=== PATIENT | male | born 1960 | race Caucasian/White ===

== ENCOUNTER 2020-11-25 23:03 | Inpatient (IN) ==
[2020-11-25 23:16] LABS: ABG Base Excess -17 mEq/L (-2 to 3); ABG HCO3 18 mEq/L (21-27); ABG Oxygen Saturation 96 % (95-98); ABG PCO2 84 mmHg (35-45); ABG PH 6.93 pH Units (7.32-7.45); ABG PO2 131 mmHg (85-104); ABG TCO2 20 mEq/L (20-26); Blood Gas VT 500 cc
[2020-11-25 23:25] LABS: Basophils # 0.1 K/mcL (0.0-0.2); Basophils % 0.7 %; Eosinophils # 0.2 K/mcL (0.0-0.6); Eosinophils % 1.5 %; Hematocrit 51.5 % (37.5-50.1); Hemoglobin 16.3 g/dL (12.9-16.9); Immature Granulocytes % 3.3 % (0-4); Lymphocytes # 5.9 K/mcL (0.6-4.6); Mean Corpuscular HGB Conc 31.7 g/dL (31.6-35.5); Mean Corpuscular Hemoglobin 30.4 pg (28.0-33.3); Mean Corpuscular Volume 96.1 fL (83.0-100.0); Mean Platelet Volume 10.8 fL (9.4-12.4); Monocytes # 0.4 K/mcL (0.0-1.3); Monocytes % 4.1 %; Neutrophils # 3.3 K/mcL (1.6-8.9); Platelet Count 122 K/mcL (140-400); Red Blood Count 5.36 M/mcL (4.19-5.50); Red Cell Distribution Width 14.2 % (11.5-14.5); Segmented Neutrophils % 32.4 %; White Blood Count 10.1 K/mcL (4.3-11.1)
[2020-11-25] MEDS: 0.9 % Sodium Chloride 500 ML IVC ONE (23:25)
[2020-11-25] MEDS ORDERED: *HR* Heparin 5,000 UNIT/ML VIAL IVP ONE (23:26)
[2020-11-25] MEDS ORDERED: *HR* Heparin 5,000 UNIT/ML VIAL IVP PRN ×2 (23:26)
[2020-11-25 23:34] LABS: VBG HCO3 19 mEq/L (21-27); VBG PCO2 87 mmHg (41-51); VBG PH 6.96 pH Units (7.32-7.42); VBG PO2 72 mmHg (25-50)
[2020-11-25 23:37] LABS: INR 1.1; Prothrombin Time 12.5 Seconds (9.4-12.1)
[2020-11-25 23:39] LABS: Activated Partial Thrombo Time 28.2 Seconds (26.0-36.0)
[2020-11-25 23:51] LABS: Calcium 7.9 mg/dL (8.6-10.3); Potassium 2.6 mEq/L (3.5-5.1)
[2020-11-25] MEDS ORDERED: *HR* FentaNYL (PF) 100 MCG/2 ML VIAL IVP ONE (23:53)
[2020-11-25] MEDS ORDERED: *HR* FentaNYL (PF) 100 MCG/2 ML VIAL IVP STA (23:53)
[2020-11-25] MEDS ORDERED: 0.9 % Sodium Chloride 500 ML IV ONE (23:54)
[2020-11-26] MEDS ORDERED: Nitroglycerin 1,000 MCG/5 ML VIAL IV ONE (00:03)
[2020-11-26] MEDS ORDERED: 0.9 % Sodium Chloride 1,000 ML ONE ×2 (00:03→04:38)
[2020-11-26] MEDS ORDERED: ISOVUE-370 200 ML INFUS..BTL ONE ×2 (00:03→01:06)
[2020-11-26] MEDS ORDERED: Heparin 1,000 UNITS/500 mL 500 ML ONE ×2 (00:03→01:12)
[2020-11-26] MEDS ORDERED: *HR* Heparin 10,000 UNIT/10 ML VIAL ONE (00:03)
[2020-11-26] MEDS ORDERED: *HR* Midazolam HCl 2 MG/2 ML VIAL IVP ONE (00:07)
[2020-11-26 00:08] LABS: Troponin I 0.05 ng/mL (< 0.04)
[2020-11-26] MEDS ORDERED: *HR* Midazolam HCl 2 MG/2 ML VIAL ONE (00:29)
[2020-11-26] MEDS ORDERED: *HR* FentaNYL (PF) 100 MCG/2 ML VIAL ONE (00:30)
[2020-11-26] MEDS ORDERED: Tirofiban 12.5 MG/250ML 12.5 MG/250 ML BAG ONE (01:00)
[2020-11-26] MEDS ORDERED: Perflutren Lipid Microsphere 1.3 ML in 0.9 % Sodium Chloride 8.7 ML IVP PRN (01:37)
[2020-11-26] MEDS ORDERED: Tirofiban 12.5 MG/250ML 12.5 MG/250 ML BAG IVC SCH (01:45)
[2020-11-26] MEDS ORDERED: Artificial Tears SOLN 15 ML BOTTLE BOTH EYES PRN (02:12)
[2020-11-26] MEDS ORDERED: Amiodarone Premix 360 MG/200 ML BAG IVC ONE ×2 (02:33→09:11)
[2020-11-26] MEDS: Heparin 25,000UNIT/250ML 1/2NS 25,000 UNIT/250 ML IV.SOLN IVC SCH (02:46)
[2020-11-26] MEDS: Chlorhexidine Rinse 15 ML MOUTHWASH MM SCH ×3 (02:49→19:42)
[2020-11-26 02:54] LABS: VBG Ionized Calcium 1.05 mmol/L (1.15-1.35)
[2020-11-26 02:56] LABS: Basophils % 0.2 %; Eosinophils % 0.1 %; Hematocrit 50.8 % (37.5-50.1); Hemoglobin 16.7 g/dL (12.9-16.9); Immature Granulocytes % 0.7 % (0-4); Lymphocytes % 4.9 %; Mean Corpuscular HGB Conc 32.9 g/dL (31.6-35.5); Mean Corpuscular Hemoglobin 30.3 pg (28.0-33.3); Mean Platelet Volume 11.1 fL (9.4-12.4); Monocytes # 1.5 K/mcL (0.0-1.3); Monocytes % 7.6 %; Neutrophils # 16.9 K/mcL (1.6-8.9); Platelet Count 164 K/mcL (140-400); Red Blood Count 5.52 M/mcL (4.19-5.50); Red Cell Distribution Width 14.4 % (11.5-14.5); Segmented Neutrophils % 86.5 %; White Blood Count 19.5 K/mcL (4.3-11.1)
[2020-11-26] MEDS: FentaNYL (PF) 1,000 MCG/100 ML IV.SOLN IVC SCH ×2 (03:02→17:23)
[2020-11-26 03:13] LABS: Magnesium 2.1 mg/dL (1.6-2.6)
[2020-11-26] MEDS ORDERED: Amiodarone Premix 150 MG/100 ML BAG IVPB ONE (03:50)
[2020-11-26] MEDS: Artificial Tears SOLN 15 ML BOTTLE BOTH EYES SCH ×5 (03:53→19:41)
[2020-11-26 03:54] LABS: ABG Base Excess -7 mEq/L (-2 to 3); ABG HCO3 21 mEq/L (21-27); ABG Oxygen Saturation 100 % (95-98); ABG PCO2 49 mmHg (35-45); ABG PH 7.23 pH Units (7.32-7.45); ABG PO2 484 mmHg (85-104); ABG TCO2 22 mEq/L (20-26); Blood Gas VT 450 cc
[2020-11-26] MEDS: *HR* Ticagrelor 90 MG TABLET PO SCH ×2 (04:18→19:42)
[2020-11-26] MEDS: Calcium Gluconate 1gm/50mL 1 GM/50 ML BAG IVPB SCH ×2 (04:18→04:53)
[2020-11-26 04:28] LABS: Calcium 7.6 mg/dL (8.6-10.3); Potassium 3.7 mEq/L (3.5-5.1)
[2020-11-26] MEDS ORDERED: 0.9 % Sodium Chloride 500 ML ONE ×2 (04:38→05:02)
[2020-11-26 04:51] LABS: Mixed Venous Blood pCO2 59 mmHg (44-46); Mixed Venous Blood pH 7.23 pH Units (7.34-7.36); Mixed Venous Blood pO2 25 mmHg (35-45)
[2020-11-26] MEDS ORDERED: 0.9 % Sodium Chloride 1,000 ML IVC ONE (05:00)
[2020-11-26 05:03] LABS: ABG Base Excess -6 mEq/L (-2 to 3); ABG HCO3 20 mEq/L (21-27); ABG Oxygen Saturation 99 % (95-98); ABG PCO2 40 mmHg (35-45); ABG PH 7.32 pH Units (7.32-7.45); ABG PO2 141 mmHg (85-104); ABG TCO2 22 mEq/L (20-26); Blood Gas VT 450 cc
[2020-11-26] MEDS: 0.9 % Sodium Chloride 500 ML IVC ONE (05:06)
[2020-11-26] MEDS ORDERED: *HR* Midazolam HCl 5 MG/5 ML VIAL IVP ONE ×2 (05:46→05:52)
[2020-11-26] MEDS ORDERED: Dextrose Gel 15 GM/37.5 ML TUBE PO PRN ×2 (06:01)
[2020-11-26] MEDS ORDERED: *HR* Dextrose 50 % in Water (Vial) 50 ML VIAL IVP PRN (06:01)
[2020-11-26] MEDS ORDERED: D5% in Water 1,000 ML IVC PRN (06:01)
[2020-11-26] MEDS ORDERED: Insulin LISPRO 300 UNITS/3 ML VIAL SUBQ SCH (06:15)
[2020-11-26] MEDS: Midazolam HCl 50 MG/100 ML IV.SOLN IVC SCH (06:26)
[2020-11-26] MEDS: Insulin LISPRO 300 UNITS/3 ML VIAL SUBQ SCH ×4 (08:58→19:40)
[2020-11-26] MEDS: Pantoprazole 40 MG VIAL IVP SCH (08:59)
[2020-11-26] MEDS: Aspirin 81 MG TAB.CHEW PO SCH (09:00)
[2020-11-26] MEDS ORDERED: Amiodarone Premix 360 MG/200 ML BAG IVC SCH (09:45)
[2020-11-26 11:08] LABS: Estimated Average Glucose 100 mg/dl; Hemoglobin A1C 5.1 %
[2020-11-26] MEDS ORDERED: Furosemide 40 MG/4 ML VIAL IVP ONE ×2 (11:48→20:00)
[2020-11-26 12:30] LABS: ABG Ionized Calcium 1.11 mmol/L (1.15-1.35)
[2020-11-26 13:02] LABS: Alanine Aminotransferase 158 Units/L (7-52); Albumin 3.8 g/dL (3.5-5.7); Albumin/Globulin Ratio 1.8 (1.1-2.2); Alkaline Phosphatase 62 Units/L (34-104); Aspartate Amino Transferase 486 Units/L (13-39); BUN/Creatinine Ratio 11 (6-26); Bilirubin,Direct 0.1 mg/dL (0.0-0.2); Bilirubin,Indirect 0.3 mg/dL (0.0-1.0); Bilirubin,Total 0.4 mg/dL (0.3-1.0); Blood Urea Nitrogen 19 mg/dL (6-20); Calcium 8.1 mg/dL (8.6-10.3); Carbon Dioxide 21 mEq/L (23-29); Chloride 110 mEq/L (98-107); Chol/HDL Ratio 4.8 (0-4.9); Cholesterol 116 mg/dL (< 200); Globulin 2.1 g/dL (2.4-3.5); Glucose 203 mg/dL (70-105); HDL Cholesterol 24 mg/dL (40-59); LDL Cholesterol,Calculated 55 mg/dL (< 100); Osmolality,Calculated 300 (280-300); Sodium 141 mEq/L (136-145); Total Protein 5.9 g/dL (6.4-8.9); Triglycerides 184 mg/dL (< 150); Troponin I > 73.00 ng/mL (< 0.04); eGFR For African Americans 52 (> 60); eGFR For Non-African Americans 43 (> 60)
[2020-11-26] MEDS: Norepinephrine 4 MG/254 ML IV.SOLN IVC SCH (19:26)
[2020-11-27] MEDS: Artificial Tears SOLN 15 ML BOTTLE BOTH EYES SCH ×5 (00:29→17:17)
[2020-11-27] MEDS: Heparin 25,000UNIT/250ML 1/2NS 25,000 UNIT/250 ML IV.SOLN IVC SCH (00:29)
[2020-11-27] MEDS: Insulin LISPRO 300 UNITS/3 ML VIAL SUBQ SCH ×5 (00:30→17:17)
[2020-11-27] MEDS: FentaNYL (PF) 1,000 MCG/100 ML IV.SOLN IVC SCH ×2 (02:20→11:49)
[2020-11-27 04:08] LABS: ABG Base Excess 1 mEq/L (-2 to 3); ABG HCO3 29 mEq/L (21-27); ABG Oxygen Saturation 99 % (95-98); ABG PCO2 57 mmHg (35-45); ABG PH 7.31 pH Units (7.32-7.45); ABG PO2 134 mmHg (85-104); ABG TCO2 30 mEq/L (20-26); Blood Gas VT 450 cc
[2020-11-27] MEDS: Midazolam HCl 50 MG/100 ML IV.SOLN IVC SCH (04:11)
[2020-11-27] MEDS: Norepinephrine 4 MG/254 ML IV.SOLN IVC SCH (04:11)
[2020-11-27] MEDS: Aspirin 81 MG TAB.CHEW PO SCH (08:17)
[2020-11-27] MEDS: Chlorhexidine Rinse 15 ML MOUTHWASH MM SCH (08:17)
[2020-11-27] MEDS: *HR* Ticagrelor 90 MG TABLET PO SCH (08:17)
[2020-11-27] MEDS: Pantoprazole 40 MG VIAL IVP SCH (08:17)
[2020-11-27] MEDS ORDERED: Metoprolol XL (24 HR) Succ 25 MG TAB.ER.24H PO SCH (12:00)
[2020-11-27] MEDS ORDERED: *HR* Metoprolol 5 MG/5 ML VIAL IVP ONE ×2 (12:16→12:18)
[2020-11-27 12:21] LABS: INR 1.2; Prothrombin Time 13.9 Seconds (9.4-12.1)
[2020-11-27 12:24] LABS: Activated Partial Thrombo Time 26.9 Seconds (26.0-36.0)
[2020-11-27 12:35] LABS: Albumin 3.7 g/dL (3.5-5.7); Albumin/Globulin Ratio 1.6 (1.1-2.2); Bilirubin,Total 0.6 mg/dL (0.3-1.0); Calcium 8.6 mg/dL (8.6-10.3); Globulin 2.3 g/dL (2.4-3.5)
[2020-11-27 15:34] VITALS: BP 141/86; PULSE 93; TEMP 99.9
[2020-11-27 16:12] VITALS: O2SAT 95
[2020-11-27] MEDS ORDERED: Atropine 1% Opth Drops 100 DROP/5 ML BOTTLE SL PRN (16:33)
[2020-11-27] MEDS ORDERED: Albuterol 2.5 MG/3 ML NEBULIZER IH PRN (16:33)
[2020-11-27] MEDS ORDERED: Haloperidol Lactate 5 MG/ML VIAL IVP PRN (16:33)
[2020-11-27] MEDS ORDERED: *HR* LORazepam 2 MG/ML VIAL IVP PRN (16:33)
== END 2020-11-27 17:32 | disposition expired | DRG 270 ==
LOC: EMEROOARM 23:03 → ICNU 23:55
PROVIDERS: ADMIT Internal Medicine Interventional Cardiology; ATTEND Internal Medicine Interventional Cardiology